=== PATIENT | female | born 1975 | race Caucasian/White ===

== ENCOUNTER 2019-10-06 18:23 | Inpatient (IN) | payer MEDICARE, MEDICAID, OTHER ==
[~2019-10-06 18:23] MED LIST: Lidocaine 1% PF 5 ML VIAL ONE; Metoclopramide HCl 10 MG/2 ML VIAL ONE; Ondansetron PF 4 MG/2 ML Vial ONE; PROPOFOL 200 MG/20 ML VIAL ONE; Succinylcholine Chloride 20 MG/ML 10 ml SYRINGE FS ONE
[2019-10-06] MEDS ORDERED: Iothalamate Meglumine 60% 50 ML VIAL FS ONE (20:03)
[2019-10-06] MEDS ORDERED: Fentanyl 100 MCG/2 ML VIAL ONE (20:09)
[2019-10-06] MEDS ORDERED: Midazolam HCl 2 mg/2 ml Vial ONE (20:09)
--- NOTE | 2019-10-06 21:08 | RAD ---
RETROGRADE PYELOGRAM: 10/06/19 Numerous fluoroscopic images presented from OR during intraoperative procedure for bilateral ureteral stent placement. Retrograde pyelogram procedure. Total of 17 images. FINDINGS/IMPRESSION: These images demonstrate opacification of both collecting structures and placement of bilateral urete ral stents. POS: DAILYW
[2019-10-06] MEDS ORDERED: Ondansetron PF 4 MG/2 ML Vial IVP PRN (22:32)
[2019-10-06] MEDS ORDERED: Ondansetron ODT 4 MG TAB PO PRN (22:32)
[2019-10-06] MEDS ORDERED: Acetaminophen 650 MG Suppository PR PRN (22:32)
--- NOTE | 2019-10-06 22:55 | PDOC.HHP ---
Hospitalist HPI - History of Present Illness Flank pain History of Present Illness: Patient presents with severe flank pain. States she has a known history of a kidney stone and was advised stone removal in the past which was supposed to have been done 2-3 months ago. She states she recently relocated from [place] after her mom . She postponed her procedure due to her mother passing away which required her to come here to "get her affairs in order". The patient has decided to stay and recently had her medical insurance coverage transferred to [place]. She has had intermittent episodes of flank pain with associated with N/V that usually lasts 24 to 48 hours. The pain that brought her in today has persisted longer than 2 days. She opted to seek medical attention and was initially seen at the ED in [facility]. She was given Morphine 4 mg IV for pain and before being transferred she received an additional 5 mg of Morphine, this eased her pain to a 2/10 in severity and now has increased to a 5/10. CT imaging was done showing severe left hydronephrosis secondary to obstructive kidney stone measuring 1 cm. Case was discussed with Dr. Rader who will be taking care for stone removal/stent placement. She was started on IV antibiotics with Rocephin. Given Zofran for nausea. Tested for COVID and was negative. Hospitalist ROS - Review of Systems Constitutional: reports: malaise. denies: fever, chills, sweats, weakness, other Eyes: denies: pain, vision change, conjunctivae inflammation, eyelid inflammation, redness, other ENT: denies: ear pain, ear discharge, nose pain, nose discharge, nose congestion , mouth pain, mouth swelling, throat pain, throat swelling, other Respiratory: denies: cough, dry, shortness of breath, hemoptysis, SOB with excertion, pleuritic pain, sputum, wheezing, other Cardiovascular: denies: chest pain, palpitations, orthopnea, paroxysmal noc. dyspnea, edema, light headedness, other Gastrointestinal: reports: nausea, vomiting, abdominal pain (Left sided pain/ Left flank pain). denies: diarrhea, constipation, melena, hematochezia, other Genitourinary: denies: dysuria, frequency, incontinence, hematuria, retention, other Musculoskeletal: denies: neck pain, shoulder pain, arm pain, back pain, hand pain, leg pain, foot pain, other Skin: denies: rash, lesions, edwina, bruising, other Neurological: denies: weakness, numbness, incoordination, change in speech, confusion, seizures, other - Medication Medications: ALLERGIES: SULFA CURRENT MEDICATIONS: BuSpar WedOct 06, 2019 18:46 LIZ Velasco Elizabeth tablet : Strength - 10 mg : ORAL Patient Dose: UNK mg Oral 2 times a day. gabapentin WedOct 06, 2019 18:47 LIZ Velasco Elizabeth capsule : Strength - 300 mg : ORAL Patient Dose: 300 mg Oral 2 times a day. lisinopril WedOct 06, 2019 18:47 LIZ Velasco Elizabeth tablet : Strength - 2.5 mg : ORAL Patient Dose: 2.5 mg Oral once a day. metFORMIN WedOct 06, 2019 18:48 LIZ Velasco Elizabeth tablet : Strength - 1,000 mg : ORAL Patient Dose: mg Oral 2 times a day.1000MG IN AM, 500MG IN PM. omeprazole WedOct 06, 2019 18:48 LIZ Velasco Elizabeth capsule,delayed release(DR/EC) : Strength - 40 mg : ORAL Patient Dose: 300 mg Oral once a day. SEROquel WedOct 06, 2019 18:48 LIZ Velasco Elizabeth tablet : Strength - 100 mg : ORAL Patient Dose: 100 mg Oral once a day (at bedtime). simvastatin WedOct 06, 2019 18:49 LIZ Velasco Elizabeth tablet : Strength - 40 mg : ORAL Patient Dose: unk mg Oral once a day (at bedtime). Hospitalist History - Past Medical History Cardiac: reports: HTN, Hyperlipidemia Gastrointestinal: reports: GERD Psych: reports: Anxiety, Bipolar, Depression, Psychosis, Other (PTSD) Renal/: reports: Other (nephrolithiasis) Endocrine: reports: Diabetes - Past Surgical History Past Surgical History: reports: Cholecystectomy, (x2), Other ( Lithotripsy) - Family History Family History: reports: no pertinent history - Social History Smoking Status: Smokes 0-10 cigs daily Alcohol: reports: None Drugs: reports: none Activity level: independent ambulation - Exam General Appearance: NAD, awake alert Eye: PERRL, anicteric sclera ENT: normocephalic atraumatic, no oropharyngeal lesions, moist mucosa Neck: supple, symmetric, no lymphadenopathy Heart: RRR, no murmur, no gallops, no rubs, normal peripheral pulses Respiratory: CTAB, no wheezes, no rales, no ronchi, normal chest expansion Gastrointestinal: soft, non-distended, normal bowel sounds, no guarding, tender to palpation (left CVA tenderness/left abdominal discomfort with palpation) Extremities: no edema Skin: normal turgor, no lesions, no rashes Neurological: cranial nerve grossly intact, normal sensation to touch, no focal deficits Musculoskeletal: normal tone, normal strength, no muscle wasting Psychiatric: normal affect, normal behavior, A&O x 3 Hospitalist Results - Labs Lab results: Lactic Acid 1.3 mmol/L (0.5-2.2) 10/06/19 19:54 Hospitalist H&P A/P - Problem (1) Ureterolithiasis Code(s): N20.1 - CALCULUS OF URETER Status: Acute (2) Hydronephrosis of left kidney Code(s): N13.30 - UNSPECIFIED HYDRONEPHROSIS Status: Acute (3) Pyelonephritis Code(s): N12 - TUBULO-INTERSTITIAL NEPHRITIS, NOT SPCF ACUTE OR CHRONIC Status: Acute (4) Flank pain Code(s): R10.9 - UNSPECIFIED ABDOMINAL PAIN Status: Acute (5) Hypertension Code(s): I10 - ESSENTIAL (PRIMARY) HYPERTENSION Status: Chronic (6) Diabetes mellitus Code(s): E11.9 - TYPE 2 DIABETES MELLITUS WITHOUT COMPLICATIONS Status: Chronic (7) GERD (gastroesophageal reflux disease) Code(s): K21.9 - GASTRO-ESOPHAGEAL REFLUX DISEASE WITHOUT ESOPHAGITIS Status: Chronic (8) Anxiety and depression Code(s): F41.9 - ANXIETY DISORDER, UNSPECIFIED; F32.9 - MAJOR DEPRESSIVE DISORDER, SINGLE EPISODE, UNSPECIFIED Status: Chronic - Plan Plan: Continue IV antibiotics IV fluids Urology following Monitor BP, hold antihypertensives as BP on low side at initial arrival. Monitor glucose. ISS initiated. GI prophylaxis: Resume omeprazole which she takes at home. DVT Pophylaxis: Mechanical SCDs. CODE STATUS FULL No MPOA established at present. She currently lives with her Fiance who would be her contact (Jose Fernandez).
[2019-10-06 23:03] VITALS: BMI 37.4
[2019-10-06] MEDS ORDERED: Dextrose 50% Abboject 50 ML SYRINGE SLOW IVP PRN (23:36)
[2019-10-06] MEDS ORDERED: Dextrose 5% in Water 1,000 ML IV PRN (23:36)
[2019-10-06] MEDS ORDERED: HumaLOG 300 UNITS/3 ML VIAL SC PRN ×2 (23:36)
[2019-10-06] MEDS: Ketorolac Tromethamine 30 MG/ML VIAL IVP SCH (23:44)
[2019-10-06] MEDS: Oxybutynin 5 MG TAB PO PRN (23:45)
--- NOTE | 2019-10-07 01:06 | CON ---
DATE OF CONSULTATION: 10/06/2019 REASON FOR CONSULT: Obstructing kidney stone. CHIEF COMPLAINT: Left flank pain. HISTORY OF PRESENT ILLNESS: This is a very nice 44-year-old female with a history of recurrent kidney stones for her entire life beginning at age 21. She tells me she passes about one stone per year. This current episode began in late July at which time she was diagnosed with a large obstructing left ureteral stone back in [place], [place]. She then had to move to [place] to care for her dying mother and was unable to follow through with the surgical plan for treating that stone. She tells me that her pain intensified yesterday with fevers of 100.3 overnight. She presented to the local emergency room in [place], [place] where a CT scan was performed showing a 1 cm stone in the distal left ureter with severe hydronephrosis with perinephric edema. Her white count was 17, and urinalysis positive for nitrite. Her vitals have been stable both in [place] and here. She was transferred to [facility] for surgical intervention. In speaking with her this evening in the emergency room, she tells me that she continues to have intermittent pain on the left side up to 7/10. She is having intermittent nausea, but no vomiting. She denies current dysuria, hematuria, fevers, or chills. PAST MEDICAL HISTORY: Diabetes, reflux, hypertension, kidney stones. SURGICAL HISTORY: Cholecystectomy, shockwave lithotripsy 12 years ago, . SOCIAL HISTORY: Nonsmoker. No substance abuse. CURRENT MEDICATIONS: Include: 1. BuSpar. 2. Gabapentin. 3. Lisinopril. 4. Metformin. 5. Omeprazole. 6. Seroquel. 7. Simvastatin. ALLERGIES: SULFA. PHYSICAL EXAMINATION: VITAL SIGNS: Afebrile, heart rate has been around 100 here in the emergency room, otherwise vitals are stable. GENERAL: The patient appears uncomfortable, conversant. HEENT: Head is normocephalic, atraumatic. Eyes, extraocular movements intact. Sclerae nonicteric. NECK: Supple. Trachea midline. Unlabored breathing. Symmetric chest expansion. HEART: Regular rate and rhythm. ABDOMEN: Soft, nontender, nondistended. Positive left CVA tenderness, positive suprapubic tenderness. SKIN: Warm and dry. EXTREMITIES: No peripheral edema or clubbing. NEUROLOGIC: Alert and oriented x3. PSYCHIATRIC: Normal mood and affect. LABORATORY DATA: Reviewed showing white count 17, creatinine 1.0, carbon dioxide 19. Urinalysis shows positive nitrite and leukocyte esterase. CT report has been reviewed, she did not come with a CD that I can find. The report indicates a distal left stone 1 cm in size and on the right side, a 1.6 cm and 6 mm stones in the inferior pole of the right kidney. ASSESSMENT AND PLAN: Obstructing left ureteral stone, right renal stones, urinary tract infection versus pyelonephritis. The patient and I discussed her current condition and I advised that we proceed to the operating room for cystoscopy with left stent placement for the obstructing stone. At that time, I also advised that we perform right stent placement in preparation for treating the right-sided stones. I described the procedure in detail including the risk of bleeding, infection, pain, and inability to bypass the stone to place the stent requiring nephrostomy tube, and the fact that she will need further treatments to treat the stones. She expressed understanding and wished to proceed. TIME SPENT: 70 minutes spent in direct patient care. Job ID: [id number]
--- NOTE | 2019-10-07 01:10 | OP ---
DATE OF PROCEDURE: 10/06/2019 PREOPERATIVE DIAGNOSES: 1. Obstructing left ureteral stone. 2. Right renal stones. POSTOPERATIVE DIAGNOSES: 1. Obstructing left ureteral stone. 2. Right renal stones. PROCEDURES PERFORMED: Cystoscopy with bilateral retrograde pyelogram, left 6 x 26 double-J ureteral stent placement, right 6 x 24 double-J ureteral stent placement, both without strings. ANESTHESIA: General. COMPLICATIONS: None. BLOOD LOSS: None. SPECIMENS: Urine culture. DESCRIPTION OF PROCEDURE: After informed consent, the patient was taken to the operating room, transferred to the table on her own power. Anesthesia was established. A time-out was performed showing the correct patient, site, and the procedure. Preoperative antibiotics were administered. She was prepped and draped in the lithotomy position. I began by inserting the 23-Macedonian rigid cystoscope through the urethra. The bladder was systematically examined, noting no mucosal abnormalities. The left ureter was identified and cannulated with a Pollack. I was able to see the stone under fluoroscopy in the distal ureter. A gentle retrograde pyelogram was performed, showing a severe hydroureter and hydronephrosis. A wire was passed through the Pollack around the stone and into the renal pelvis. A 6 x 26 double-J ureteral stent was positioned over the wire with a curl in the kidney and curl in the bladder under fluoroscopic guidance. A small amount of purulent drainage resulted after placing the stent and a urine culture was sent at this point. The Pollack catheter was then passed into the right ureteral orifice and a retrograde pyelogram performed showing good filling of the renal pelvis and ureter. The stone was seen in a lower pole calyx. A wire was then passed through the Pollack into the renal pelvis, and a 6 x 24 double-J ureteral stent positioned over the wire with a curl in the kidney and curl in the bladder. Completion cystoscopy showed both ureteral stents positioned with a curl in the bladder. Completion images were taken. The bladder was then drained. The patient was awoken from anesthesia and transferred back to her hospital bed, and taken to the PACU in stable condition, where she will be admitted to the hospitalist service. Job ID: [id number]
[2019-10-07 06:04] LABS: #Basophils 0.1 thou/uL (0.0-0.2); #Eosinphils 0.1 thou/uL (0.0-0.7); #Lymphocytes 1.9 thou/uL (1.20-3.40); #Monocytes 1.6 thou/uL (0.11-0.59); #Neutrophils 9.8 thou/uL (1.40-6.50); %Basophils 0.4 % (0.0-1.0); %Lymphocytes 14.4 % (21.0-51.0); %Monocytes 11.7 % (0.0-10.0); %Neutrophils 72.4 % (42.0-75.0); Hemoglobin 9.4 g/dL (12.0-16.0); Mean Corpuscular HGB CONC 29.3 g/dL (32.0-36.0); Mean Corpuscular Hemoglobin 23.1 pg (27.0-31.0); Mean Corpuscular Volume 78.8 fL (78.0-98.0); Mean Platelet Volume 9.7 fL (7.4-10.4); Platelet Count 291 thou/uL (130-400); RBC Distribution Width 19.3 % (11.5-14.5); Red Blood Cell (RBC) Count 4.04 mill/uL (4.20-5.40); White Blood Cell (WBC) Count 13.5 thou/uL (4.8-10.8)
[2019-10-07] MEDS: Ketorolac Tromethamine 30 MG/ML VIAL IVP SCH ×4 (06:17→23:22)
[2019-10-07 06:21] LABS: Anion Gap 11 mmol/L (10-20); BUN (Urea Nitrogen) 9 mg/dL (7.0-18.7); Calc. Creatinine Clearance 112 mL/min (70-130); Calcium 7.7 mg/dL (7.8-10.44); Carbon Dioxide 18 mmol/L (22-29); Chloride 111 mmol/L (98-107); Estimated GFR-MDRD 63; Glucose 121 mg/dL (70-105); Potassium 3.9 mmol/L (3.5-5.1); Sodium 136 mmol/L (136-145)
[2019-10-07] MEDS: Oxybutynin 5 MG TAB PO PRN ×2 (09:12→17:11)
[2019-10-07] MEDS: Famotidine/PF 20 mg/2ml Vial SLOW IVP SCH ×2 (09:12→20:27)
--- NOTE | 2019-10-07 11:00 | PRG ---
DATE OF SERVICE: 10/07/2019 SUBJECTIVE: The patient reports that she feels much better than yesterday noting no further flank pain or fevers. She does endorse fatigue and feeling weak overall. She denies chest pains, difficulty breathing, or headaches. OBJECTIVE: VITAL SIGNS: Afebrile. Vitals are stable. GENERAL: No acute distress. Conversant. LUNGS: Unlabored breathing. Symmetric chest expansion. HEART: Regular rate and rhythm. ABDOMEN: Soft, nontender, and nondistended. No CVA or suprapubic tenderness. EXTREMITIES: No peripheral edema. SKIN: Warm and dry. NEUROLOGIC: Alert and oriented x3. PSYCHIATRIC: Normal mood and affect. LABORATORY DATA: White count down to 13 today, hemoglobin 9.4. Creatinine 0.95. ASSESSMENT AND PLAN: Postoperative day 1, cystoscopy with bilateral stent placement for obstructing left ureteral stone and large right renal stones, pyelonephritis. She is progressing well after stent placement. Urine culture was sent at the time of stent placement yesterday, which should result by tomorrow. She will need oral antibiotics for about 2 weeks, at which point, she and I will discuss her surgical intervention for the stones. Job ID: [id number]
[2019-10-07] MEDS: cefTRIAXone\\ROCEPHIN 2 GM in Sodium Chloride 0.9% 100 ML IVPB SCH (16:20)
--- NOTE | 2019-10-07 16:38 | PDOC.HOSPP ---
- Subjective Encounter Date: 10/07/19 Encounter Time: 09:00 Subjective: Pt seen for ureterolithiasis. Feels better today. - Objective Vital Signs & Weight: Vital Signs (12 hours) Temp Pulse Resp BP Pulse Ox 10/07/19 14:37 98.4 F 74 16 121/75 97 10/07/19 10:26 98.3 F 76 16 113/66 97 10/07/19 07:50 98.2 F 78 16 113/56 L 93 L Weight Weight 211 lb 6.4 oz I&O: 10/06/19 10/07/19 10/08/19 06:59 06:59 06:59 Intake Total 420 Output Total 400 Balance 20 Result Diagrams: 10/07/19 05:40 10/07/19 05:40 Additional Labs: Accuchecks 10/07/19 10/07/19 10/07/19 14:40 10:33 06:26 POC Glucose 145 H 147 H 134 H 10/06/19 22:30 POC Glucose 131 H Labs and MARs reviewed by nc Hospitalist ROS - Review of Systems Cardiovascular: denies: chest pain, palpitations, orthopnea, paroxysmal noc. dyspnea, edema, light headedness Gastrointestinal: denies: nausea, vomiting, abdominal pain, diarrhea, constipation, melena, hematochezia - Medication Medications: Active Medications Generic Name Dose Route Start Last Admin Trade Name Freq PRN Reason Stop Dose Admin Famotidine 20 mg 10/07/19 09:00 10/07/19 09:12 Pepcid SLOW IVP 20 mg Q12HR DENNY Administration Ceftriaxone Sodium 2 gm/ 100 mls @ 200 mls/hr 10/07/19 14:30 10/07/19 16:20 Sodium Chloride IVPB 100 mls Q24HR DENNY Administration Ketorolac Tromethamine 30 mg 10/06/19 23:59 10/07/19 13:01 Toradol IVP 10/11/19 23:59 30 mg Q6HR DENNY Administration Oxybutynin Chloride 5 mg 10/06/19 22:18 10/07/19 09:12 Ditropan PO 5 mg Q8H PRN Administration Bladder Spasms - Exam General - other findings: Obese Eye: anicteric sclera ENT: no oropharyngeal lesions Neck: supple Heart: RRR Respiratory: CTAB Gastrointestinal: soft, non-tender, normal bowel sounds Extremities: no cyanosis Skin: no rashes Musculoskeletal: no muscle wasting Psychiatric: normal affect, normal behavior Hosp A/P - Plan - Assessment (1) Ureterolithiasis Code(s): N20.1 - CALCULUS OF URETER Status: Acute (2) Pyelonephritis Code(s): N12 - TUBULO-INTERSTITIAL NEPHRITIS, NOT SPCF ACUTE OR CHRONIC Status: Acute (3) Hydronephrosis of left kidney Code(s): N13.30 - UNSPECIFIED HYDRONEPHROSIS Status: Acute (4) GERD (gastroesophageal reflux disease) Code(s): K21.9 - GASTRO-ESOPHAGEAL REFLUX DISEASE WITHOUT ESOPHAGITIS Status: Chronic (5) Hypertension Code(s): I10 - ESSENTIAL (PRIMARY) HYPERTENSION Status: Chronic (6) Diabetes mellitus Code(s): E11.9 - TYPE 2 DIABETES MELLITUS WITHOUT COMPLICATIONS Status: Chronic (7) Anxiety and depression Code(s): F41.9 - ANXIETY DISORDER, UNSPECIFIED; F32.9 - MAJOR DEPRESSIVE DISORDER, SINGLE EPISODE, UNSPECIFIED Status: Chronic - Plan Plan: Continue IV ceftriaxone, await urine culture. s/p cystoscopy and ureteric stent placement. Continue accuchecks and insulin sliding scale. Blood sugars reasonably controlled. Depression mild, stable. HTN controlled.
[2019-10-07] MEDS ORDERED: Amlodipine 5 MG TAB PO SCH (17:00)
[2019-10-07] MEDS ORDERED: Metoprolol Tartrate 25 MG TAB PO SCH (17:00)
[2019-10-07] MEDS ORDERED: Loratadine 10 MG TAB PO SCH (17:00)
[2019-10-07] MEDS: Acetaminophen 325 MG TAB PO PRN (20:36)
[2019-10-08] MEDS: Oxybutynin 5 MG TAB PO PRN ×3 (02:51→23:52)
[2019-10-08] MEDS: Acetaminophen 325 MG TAB PO PRN ×2 (02:51→19:52)
[2019-10-08] MEDS: Ketorolac Tromethamine 30 MG/ML VIAL IVP SCH ×4 (06:01→23:52)
[2019-10-08] MEDS ORDERED: DIOVAN PO SCH (09:00)
[2019-10-08] MEDS: Famotidine/PF 20 mg/2ml Vial SLOW IVP SCH ×2 (11:35→19:53)
--- NOTE | 2019-10-08 12:26 | PRG ---
DATE OF SERVICE: 10/08/2019 SUBJECTIVE: No acute events overnight. No discomfort other than mild bladder irritation from the stents. She denies dysuria, flank pain, nausea, vomiting, fevers, or chills. Tolerating oral diet. OBJECTIVE: VITAL SIGNS: Afebrile. Vitals stable. GENERAL: No acute distress. Conversant. NECK: Supple. Trachea midline. Unlabored breathing. Symmetric chest expansion. HEART: Regular rate and rhythm. ABDOMEN: Soft, nontender, and nondistended. No flank or suprapubic tenderness. SKIN: Warm and dry. No peripheral edema or clubbing. NEUROLOGIC: Alert and oriented x3. PSYCHIATRIC: Normal mood and affect. LABORATORY DATA: Urine output 2500. Laboratory reviewed. Blood sugars around 135. ASSESSMENT AND PLAN: Postoperative day 2, cystoscopy with bilateral stent placement. Clinically, the patient is stable for discharge; however, we are awaiting urine culture. The preliminary results show rare growth, requiring subculture. Once this has returned, she can discharge home with 2 weeks of appropriate antibiotics. I will see her on October 17 to begin planning for staged ureteroscopy. Job ID: [id number]
--- NOTE | 2019-10-08 15:28 | PDOC.HOSPP ---
- Subjective Encounter Date: 10/08/19 Encounter Time: 09:00 Subjective: She was seen for follow-up for ureterolithiasis. Denies any flank pain. Denies any fevers. Denies any chest pain, shortness of breath, nausea or vomiting. - Objective Vital Signs & Weight: Vital Signs (12 hours) Temp Pulse Resp BP Pulse Ox 10/08/19 10:22 98.1 F 70 16 143/84 H 98 10/08/19 07:34 98.1 F 60 16 143/79 H 99 10/08/19 07:17 98.1 F 66 16 143/74 H 100 10/08/19 04:08 98 F 66 16 120/74 99 Weight Weight 211 lb 6.4 oz I&O: 10/07/19 10/08/19 10/09/19 06:59 06:59 06:59 Intake Total 420 2700 Output Total 400 2500 Balance 20 200 Result Diagrams: 10/07/19 05:40 10/07/19 05:40 Additional Labs: Accuchecks 10/08/19 10/08/19 10/07/19 10:28 07:04 20:47 POC Glucose 135 H 98 105 Labs and MAR were reviewed by me. Hospitalist ROS - Review of Systems Gastrointestinal: denies: nausea, vomiting, abdominal pain, diarrhea, constipation, melena, hematochezia Genitourinary: denies: dysuria, frequency, incontinence, hematuria, retention - Medication Medications: Active Medications Generic Name Dose Route Start Last Admin Trade Name Freq PRN Reason Stop Dose Admin Acetaminophen 650 mg 10/06/19 22:32 10/08/19 02:51 Tylenol PO 650 mg Q4H PRN Administration Headache/Fever/Mild Pain (1-3) Famotidine 20 mg 10/07/19 09:00 10/08/19 11:35 Pepcid SLOW IVP 20 mg Q12HR DENNY Administration Ceftriaxone Sodium 2 gm/ 100 mls @ 200 mls/hr 10/07/19 14:30 10/07/19 16:20 Sodium Chloride IVPB 100 mls Q24HR DENNY Administration Ketorolac Tromethamine 30 mg 10/06/19 23:59 10/08/19 11:32 Toradol IVP 10/11/19 23:59 30 mg Q6HR DENNY Administration Oxybutynin Chloride 5 mg 10/06/19 22:18 10/08/19 11:32 Ditropan PO 5 mg Q8H PRN Administration Bladder Spasms - Exam General Appearance: awake alert Eye: anicteric sclera ENT: moist mucosa Neck: supple Heart: RRR Respiratory: CTAB, no rales Gastrointestinal: soft, non-tender Extremities: no cyanosis Skin: no lesions Psychiatric: normal affect, normal behavior Hosp A/P - Plan - Assessment (1) Ureterolithiasis Code(s): N20.1 - CALCULUS OF URETER Status: Acute (2) Pyelonephritis Code(s): N12 - TUBULO-INTERSTITIAL NEPHRITIS, NOT SPCF ACUTE OR CHRONIC Status: Acute (3) Hydronephrosis of left kidney Code(s): N13.30 - UNSPECIFIED HYDRONEPHROSIS Status: Acute (4) GERD (gastroesophageal reflux disease) Code(s): K21.9 - GASTRO-ESOPHAGEAL REFLUX DISEASE WITHOUT ESOPHAGITIS Status: Chronic (5) Hypertension Code(s): I10 - ESSENTIAL (PRIMARY) HYPERTENSION Status: Chronic (6) Diabetes mellitus Code(s): E11.9 - TYPE 2 DIABETES MELLITUS WITHOUT COMPLICATIONS Status: Chronic (7) Anxiety and depression Code(s): F41.9 - ANXIETY DISORDER, UNSPECIFIED; F32.9 - MAJOR DEPRESSIVE DISORDER, SINGLE EPISODE, UNSPECIFIED Status: Chronic - Plan Plan: Continue IV ceftriaxone, await urine subculture. s/p cystoscopy and ureteric stent placement, to follow up with urology as outpt. Blood sugars reasonably controlled. Depression mild, stable. HTN controlled.
[2019-10-08] MEDS: cefTRIAXone\\ROCEPHIN 2 GM in Sodium Chloride 0.9% 100 ML IVPB SCH (15:42)
[2019-10-09] MEDS: Ketorolac Tromethamine 30 MG/ML VIAL IVP SCH ×3 (06:20→16:13)
[2019-10-09] MEDS: Famotidine/PF 20 mg/2ml Vial SLOW IVP SCH (07:47)
[2019-10-09] MEDS: Acetaminophen 325 MG TAB PO PRN (08:08)
[2019-10-09 11:51] VITALS: BP 162/63; TEMP 98.2
--- NOTE | 2019-10-09 11:54 | DIS ---
DATE OF ADMISSION: 10/06/2019 DATE OF DISCHARGE: 10/09/2019 PRIMARY CARE PROVIDER: None. DISCHARGE DIAGNOSES: 1. Obstructing left ureteral stone. 2. Right nephrolithiasis. 3. Left hydronephrosis. 4. Pyelonephritis. CONDITION: Condition of the patient on the day of discharge: Stable. I assessed Ms. Patel on the day of discharge. She denies any chest pain or shortness of breath. Vital signs are stable. S1 and S2 are heard, regular. Lungs are clear to auscultation bilaterally. CONSULTATIONS DURING THIS HOSPITALIZATION: Urology, Dr. Rader. DISCHARGE MEDICATIONS: Prescriptions for oxybutynin, cefdinir, and ibuprofen were sent to her pharmacy by Urology Service. Her pre-admission home medications are being continued and include; 1. BuSpar 10 mg 2 times a day. 2. Gabapentin 300 mg 2 times a day. 3. Lisinopril 2.5 mg daily. 4. Metformin as directed. 5. Omeprazole 40 mg daily. 6. Simvastatin 40 mg at bedtime. HOSPITAL COURSE: Ms. Patel is a pleasant 44-year-old lady, who was admitted to [facility] on October 06, 2019, for pyelonephritis, right nephrolithiasis, left ureterolithiasis, and left hydronephrosis. She was seen by Urology Service. She underwent cystoscopy with bilateral retrograde pyelogram, left 6 x 26 double-J ureteral stent placement, right 6 x 24 double-J ureteral stent placement, both without strings. She continued to improve clinically. She was initially treated with intravenous antibiotics. Urine culture grew Escherichia coli that was resistant to fluoroquinolones, but was otherwise pansensitive. She is being discharged home in a stable condition. POST-ACUTE CARE FOLLOWUP: With Dr. Rader on October 18, 2019. The patient is also advised to follow up with a primary care provider in 3 days. DIET: Diabetic and heart healthy. ACTIVITY: No restrictions. DISCHARGE DESTINATION: Home. TIME SPENT: Total amount of time spent in coordinating this discharge: 32 minutes. Job ID: [id number]
[2019-10-09] MEDS: cefTRIAXone\\ROCEPHIN 2 GM in Sodium Chloride 0.9% 100 ML IVPB SCH (15:15)
== END 2019-10-09 17:26 | disposition home or self-care (01) | DRG 660 ==
LOC: ERS 18:23 → SURG B 20:25 → SDC/OP 20:25 → SURG B 22:17
PROVIDERS: ADMIT Internal Medicine; ATTEND Internal Medicine
PROC: 0T788DZ Dilation of Bilateral Ureters with Intraluminal Device, Via Natural or Artificial Opening Endoscopic (ICD-10-PCS; principal; 2019-10-06)
PROC: BT14ZZZ Fluoroscopy of Kidneys, Ureters and Bladder (ICD-10-PCS; 2019-10-06)
DX: N13.6 Pyonephrosis (principal); Z16.23 Resistance to quinolones and fluoroquinolones; F32.0 Major depressive disorder, single episode, mild; K21.9 Gastro-esophageal reflux disease without esophagitis; Z11.59 Encounter for screening for other viral diseases; E11.9 Type 2 diabetes mellitus without complications; E78.5 Hyperlipidemia, unspecified; I10 Essential (primary) hypertension; F41.9 Anxiety disorder, unspecified; F43.10 Post-traumatic stress disorder, unspecified; F29 Unspecified psychosis not due to a substance or known physiological condition; B96.20 Unspecified Escherichia coli [E. coli] as the cause of diseases classified elsewhere; F17.210 Nicotine dependence, cigarettes, uncomplicated; Z90.49 Acquired absence of other specified parts of digestive tract; Z88.2 Allergy status to sulfonamides; Z79.899 Other long term (current) drug therapy; Z79.84 Long term (current) use of oral hypoglycemic drugs
CPT/HCPCS: 36415; 36416; 74420; 80048; 83605; 85025; 87077; 87086; 87186; J0696; J1885; J2250; J2405; J2704; J2765; J3010; J3490; S0028

== ENCOUNTER 2019-11-21 05:52 | Day surgery (SDC) | payer MEDICARE, MEDICAID ==
[2019-11-16 09:14] VITALS: BMI 32.3
[2019-11-21] MEDS ORDERED: Sodium Chloride 0.9% 100 ML ONE (06:28)
[2019-11-21] MEDS ORDERED: cefTRIAXone\\ROCEPHIN 1 GM VIAL ONE (06:28)
[2019-11-21] MEDS ORDERED: Fentanyl 100 MCG/2 ML VIAL ONE (06:38)
[2019-11-21] MEDS ORDERED: Iothalamate Meglumine 60% 50 ML VIAL FS ONE (07:07)
[2019-11-21] MEDS ORDERED: Midazolam HCl 2 mg/2 ml Vial ONE (07:08)
--- NOTE | 2019-11-21 08:45 | RAD ---
EXAM: Retrograde IVP HISTORY: Bilateral ureteral stent placement COMPARISON: 10/06/2019 FINDINGS/IMPRESSION: Limited intraoperative fluoroscopic views of the retrograde IVP were submitted f or interpretation. There are bilateral ureteral stents which appear in good position. There is mild bilateral hydronephrosis.
[2019-11-21] MEDS ORDERED: Oxybutynin 5 MG TAB ONE (09:35)
[2019-11-21] MEDS ORDERED: EPHEDRINE 25 MG/5 ML SYRINGE ONE (09:59)
[2019-11-21] MEDS ORDERED: PHENYLEPHRINE-NS 100 MCG/ML 10 ML SYRINGE ONE (09:59)
[2019-11-21] MEDS ORDERED: Lidocaine 1% PF 5 ML VIAL ONE (09:59)
[2019-11-21] MEDS ORDERED: Ketorolac Tromethamine 30 MG/ML VIAL ONE (09:59)
[2019-11-21] MEDS ORDERED: Ondansetron PF 4 MG/2 ML Vial ONE (09:59)
[2019-11-21] MEDS ORDERED: PROPOFOL 200 MG/20 ML VIAL ONE (09:59)
--- NOTE | 2019-11-21 10:28 | OP ---
DATE OF PROCEDURE: 11/21/2019 PREOPERATIVE DIAGNOSES: Left ureteral stone, right renal stones. POSTOPERATIVE DIAGNOSES: Left ureteral stone, right renal stones. PROCEDURES PERFORMED: Left ureteroscopy with laser, basket extraction, retrograde pyelogram, 6 x 24 double-J ureteral stent placement, right ureteroscopy with laser, retrograde pyelogram, 6 x 26 double-J stent placement. ANESTHESIA: General. COMPLICATIONS: None. ESTIMATED BLOOD LOSS: None. SPECIMEN: Left ureteral stone fragments. DESCRIPTION OF PROCEDURE: After informed consent, the patient was taken to the operating room, transferred to the table under her own power. Anesthesia was established. A time-out was performed showing the correct patient, site, and procedure. Preoperative antibiotics were administered. She was prepped and draped in the lithotomy position. The rigid cystoscope was advanced through the urethra into the bladder. The left ureteral stent was grasped and brought out through the urethral meatus. I was unable to pass a wire through this due to fairly heavy calcifications and so the stent was removed and the semi-rigid ureteroscope inserted and used to pass a wire into the left ureter, which was passed up to the renal pelvis under fluoroscopic guidance. The scope was then inserted alongside the wire until the stone was identified in the mid ureter. The stone was treated with the 273 micron laser fiber. All stone fragments were removed with the 1.9 cm Nitinol basket. The scope was then passed up to the left UPJ, noting no further stone fragments. A completion retrograde pyelogram was performed showing good filling of the kidney with no extravasation or filling defects. The scope was then withdrawn leaving the wire in place and a 6 x 24 double-J ureteral stent without strings was placed over the wire with curl in the kidney and curl in the bladder under fluoroscopic guidance. The cystoscope was then replaced into the bladder and the right ureteral stent removed. The scope was then reinserted and wire passed into the right ureter up to the level of the renal pelvis under fluoroscopic guidance. An access sheath was placed over the wire into the mid to proximal ureter and a retrograde pyelogram performed through this showing a filling defect at the UPJ. Otherwise, good filling of the kidney. The large stone was clearly seen in the lower pole on industrial cleaning technician imaging. The flexible ureteroscope was passed through the access sheath into the proximal ureter and finally to the UPJ, where there was a stone identified. This was treated with the laser. This scope was then passed into the renal pelvis and the large stone identified in the lower pole. I spent about 40 minutes later time treating this stone. However, the stone was very hard and was unable to completely fragment the stone. At this point, visualization was very poor due to the significant stone debris and so a retrograde pyelogram was performed filling the renal pelvis with contrast. The scope was slowly withdrawn leaving a wire in place. The access sheath was then carefully withdrawn and a 6 x 26 double-J ureteral stent without strings was passed over the wire with a curl in the kidney and curl in the bladder. Her bladder was then drained. The patient was awoken from anesthesia, transferred back to her hospital bed, and taken to PACU in stable condition, where she will discharge home upon recovery. We will plan for completion/second-stage ureteroscopy in the near future. Job ID: [id number]
== END 2019-11-21 10:40 | disposition home or self-care (01) ==
LOC: SDC 05:52
PROVIDERS: ATTEND Urology
PROC: 0T788DZ Dilation of Bilateral Ureters with Intraluminal Device, Via Natural or Artificial Opening Endoscopic (ICD-10-PCS; principal; 2019-11-21)
DX: N20.2 Calculus of kidney with calculus of ureter (principal); N30.01 Acute cystitis with hematuria; Z79.84 Long term (current) use of oral hypoglycemic drugs; Z79.899 Other long term (current) drug therapy; Z88.2 Allergy status to sulfonamides
CPT/HCPCS: 74420; 82365; 88300; J0696; J1885; J2250; J2405; J2704; J3010; J3490

== ENCOUNTER 2019-12-07 07:40 | Outpatient (CLI) | payer MEDICARE, MEDICAID, OTHER ==
[2019-11-16 16:17] LABS: Hemoglobin 11.2 g/dL (12.0-16.0); Mean Corpuscular HGB CONC 31.7 g/dL (32.0-36.0); Mean Corpuscular Hemoglobin 24.2 pg (27.0-31.0); Mean Corpuscular Volume 76.2 fL (78.0-98.0); Mean Platelet Volume 9.8 fL (7.4-10.4); Platelet Count 343 thou/uL (130-400); RBC Distribution Width 17.9 % (11.5-14.5); Red Blood Cell (RBC) Count 4.62 mill/uL (4.20-5.40)
[2019-11-16 16:25] LABS: PTT 27.9 sec (22.9-36.1); Prothrombin Time 13.6 sec (12.0-14.7)
[2019-11-16 16:36] LABS: Anion Gap 13 mmol/L (10-20); BUN (Urea Nitrogen) 10 mg/dL (7.0-18.7); Calc. Creatinine Clearance 0 mL/min (70-130); Calcium 8.8 mg/dL (7.8-10.44); Carbon Dioxide 20 mmol/L (22-29); Chloride 107 mmol/L (98-107); Estimated GFR-MDRD 63; Glucose 115 mg/dL (70-105); Potassium 3.9 mmol/L (3.5-5.1); Sodium 136 mmol/L (136-145)
[2019-11-17 13:49] LABS: SARS-CoV-2 MS2 Positive; SARS-CoV-2 N Gene Negative; SARS-CoV-2 S Gene Negative; SARS-CoV-2 by NAA Not Detected (NotDetected); SARS-CoV-2 orf1ab Negative
--- NOTE | 2019-11-22 20:11 | EKG ---
Test Reason : PREOP Blood Pressure : / mmHG Vent. Rate : 070 BPM Atrial Rate : 070 BPM P-R Int : 138 ms QRS Dur : 072 ms QT Int : 422 ms P-R-T Axes : 002 041 024 degrees QTc Int : 455 ms Normal sinus rhythm Normal ECG Confirmed by DR. Israel TURNER MD ([id number]) on 11/22/2019 8:11:19 PM Referred By: CHANDRA Confirmed By:DR. Israel TURNER MD
== END 2019-12-07 07:41 | disposition home or self-care (01) ==
LOC: LABBT 07:40
PROVIDERS: ATTEND Urology
DX: Z01.818 Encounter for other preprocedural examination (principal); Z20.828 Contact with and (suspected) exposure to other viral communicable diseases; N20.0 Calculus of kidney
CPT/HCPCS: 80048; 85027; 85610; 85730; 93005; U0003; 87635; 93010

== ENCOUNTER 2019-12-26 07:33 | Outpatient (CLI) | payer MEDICARE, MEDICAID, OTHER ==
[2019-12-26 14:14] LABS: Hemoglobin 10.2 g/dL (12.0-16.0); Mean Corpuscular HGB CONC 30.5 g/dL (32.0-36.0); Mean Corpuscular Hemoglobin 24.4 pg (27.0-31.0); Mean Corpuscular Volume 80.1 fL (78.0-98.0); Mean Platelet Volume 9.6 fL (7.4-10.4); Platelet Count 252 thou/uL (130-400); RBC Distribution Width 18.8 % (11.5-14.5); White Blood Cell (WBC) Count 9.8 thou/uL (4.8-10.8)
[2019-12-26 14:21] LABS: BHCG - Serum Negative (NEGATIVE); Pregs Control Background? CLEAR/WHITE (CLR/WHITE); Pregs Control Bar Appear? YES (CONTROL BAR)
[2019-12-26 14:27] LABS: PTT 26.4 sec (22.9-36.1); Prothrombin Time 13.4 sec (12.0-14.7)
[2019-12-26 14:34] LABS: Bacteria/HPF 4+ HPF (None Seen); Bilirubin Negative (Negative); Blood, Urine 1+ (Negative); Clarity Turbid (Clear); Glucose, Urine (Dipstick) Normal (Negative); Ketone, Urine Negative (Negative); Leukocyte 500 Leu/uL (Negative); Nitrite Negative (Negative); Protein, Urine (Dipstick) 20 mg/dL (Neg-Trace); Specific Gravity, Urine 1.012 (1.002-1.036); Squamous Epithelial 0-3 HPF (0-3); Urobilinogen Normal mg/dL (Less than 2); WBC/HPF Greater than 50 HPF (0-3)
[2019-12-26 15:13] LABS: Anion Gap 11 mmol/L (10-20); BUN (Urea Nitrogen) 10 mg/dL (7.0-18.7); Calc. Creatinine Clearance 0 mL/min (70-130); Calcium 8.2 mg/dL (7.8-10.44); Carbon Dioxide 23 mmol/L (22-29); Chloride 108 mmol/L (98-107); Estimated GFR-MDRD 59; Glucose 140 mg/dL (70-105); Potassium 3.3 mmol/L (3.5-5.1); Sodium 139 mmol/L (136-145)
[2019-12-27 15:43] LABS: SARS-CoV-2 MS2 Positive; SARS-CoV-2 N Gene Positive; SARS-CoV-2 S Gene Positive; SARS-CoV-2 by NAA DETECTED (NotDetected); SARS-CoV-2 orf1ab Negative
--- NOTE | 2019-12-27 17:29 | EKG ---
Test Reason : PREOP Blood Pressure : / mmHG Vent. Rate : 073 BPM Atrial Rate : 073 BPM P-R Int : 142 ms QRS Dur : 074 ms QT Int : 440 ms P-R-T Axes : 021 068 038 degrees QTc Int : 484 ms Normal sinus rhythm Prolonged QT Abnormal ECG When compared with ECG of 16-NOV-2019 13:10, No significant change was found Confirmed by DR. Mario CARRASCO ([id number]) on 12/27/2019 5:28:41 PM Referred By: Eirk ARTIS Confirmed By:DR. Mario CARRASCO
== END 2019-12-26 07:34 | disposition home or self-care (01) ==
LOC: LABBT 07:33
PROVIDERS: ATTEND Urology
DX: U07.1 COVID-19 (principal); Z01.818 Encounter for other preprocedural examination; N20.0 Calculus of kidney; N30.01 Acute cystitis with hematuria
CPT/HCPCS: 80048; 81001; 84703; 85027; 85610; 85730; 87086; 93005; U0003; 87635; 93010

== ENCOUNTER 2020-01-12 06:59 | Outpatient (CLI) | payer MEDICARE, MEDICAID, OTHER ==
[2020-01-12 15:30] LABS: Hemoglobin 9.1 g/dL (12.0-16.0); Mean Corpuscular HGB CONC 30.1 G/DL (32.0-36.0); Mean Corpuscular Hemoglobin 23.4 PG (27.0-33.0); Mean Corpuscular Volume 77.6 fl (80.0-100.0); Mean Platelet Volume 11.3 fl (7.4-10.4); Platelet Count 318 10x3/uL (130-400); RBC Distribution Width 19.8 % (11.5-14.5); Red Blood Cell (RBC) Count 3.89 10x6/uL (3.90-5.20); White Blood Cell (WBC) Count 9.3 10x3/uL (4.5-11.0)
[2020-01-12 15:32] LABS: Bilirubin Neg (Negative); Blood, Urine 25 (Negative); Glucose, Urine (Dipstick) Normal (Negative); Ketone, Urine Negative (Negative); Leukocyte 500 (Negative); Nitrite Negative (Negative); Protein, Urine (Dipstick) 30 mg/dl (Neg-Trace); Urobilinogen Normal mg/dL (Less than 2)
[2020-01-12 15:44] LABS: BHCG - Serum Negative (NEGATIVE); Pregs Control Bar Appear? YES (CONTROL BAR)
[2020-01-12 15:45] LABS: Pregs Control Background? CLEAR/WHITE (CLR/WHITE)
[2020-01-12 15:48] LABS: Anion Gap 18 mmol/L (10-20); BUN (Urea Nitrogen) 11 mg/dL (7.0-18.7); Calc. Creatinine Clearance 0 mL/min (70-130); Calcium 8.8 mg/dL (7.8-10.44); Carbon Dioxide 15 mmol/L (22-29); Chloride 110 mmol/L (98-107); Estimated GFR-MDRD 64; Glucose 114 mg/dL (70-105); Potassium 4.3 mmol/L (3.5-5.1); Sodium 139 mmol/L (136-145)
[2020-01-12 15:50] LABS: WBC/HPF 21-50 HPF (0-3)
[2020-01-12 15:52] LABS: Transitional Epithelial 0-3 HPF (None Seen)
[2020-01-12 15:56] LABS: Bacteria/HPF 1+ HPF (None Seen); Trichomonas/HPF Rare HPF (None Seen)
[2020-01-15 00:13] LABS: SARS-CoV-2 MS2 Positive; SARS-CoV-2 N Gene Negative; SARS-CoV-2 S Gene Negative; SARS-CoV-2 by NAA Not Detected (Not Detected); SARS-CoV-2 orf1ab Negative
--- NOTE | 2020-01-17 19:25 | EKG ---
Test Reason : Blood Pressure : / mmHG Vent. Rate : 078 BPM Atrial Rate : 078 BPM P-R Int : 146 ms QRS Dur : 070 ms QT Int : 398 ms P-R-T Axes : 026 082 046 degrees QTc Int : 453 ms Sinus rhythm with Premature supraventricular complexes Otherwise normal ECG When compared with ECG of 26-DEC-2019 10:55, Premature supraventricular complexes are now Present Confirmed by YUE SHELTON, SBret ([id number]) on 01/17/2020 7:24:35 PM Referred By: CHANDRA Confirmed By:DR. Israel TURNER MD
== END 2020-01-12 07:00 | disposition home or self-care (01) ==
LOC: LABBT 06:59
PROVIDERS: ATTEND Urology
DX: Z01.818 Encounter for other preprocedural examination (principal); N20.0 Calculus of kidney; N30.01 Acute cystitis with hematuria; Z98.890 Other specified postprocedural states
CPT/HCPCS: 80048; 81001; 84703; 85027; 87086; U0003; 87635; 93005; 93010

== ENCOUNTER 2020-01-16 07:44 | Day surgery (SDC) | payer MEDICARE, MEDICAID ==
[2020-01-15 14:38] VITALS: BMI 32.3
[2020-01-16] MEDS ORDERED: Levofloxacin 500 mg/D5W 100 ml Premix Bag ONE (08:27)
[2020-01-16] MEDS ORDERED: Iothalamate Meglumine 60% 50 ML VIAL FS ONE (09:39)
[2020-01-16] MEDS ORDERED: Fentanyl 100 MCG/2 ML VIAL ONE (09:43)
[2020-01-16] MEDS ORDERED: SUGAMMADEX SODIUM 200 MG/2 ML VIAL ONE (09:43)
[2020-01-16] MEDS ORDERED: Oxybutynin 5 MG TAB ONE (11:15)
[2020-01-16] MEDS ORDERED: Promethazine HCl 25 MG/ML VIAL ONE (12:00)
--- NOTE | 2020-01-16 12:41 | OP ---
DATE OF PROCEDURE: 01/16/2020 PREOPERATIVE DIAGNOSES: Right renal stones, history of left ureteral stones. POSTOPERATIVE DIAGNOSES: Right renal stones, history of left ureteral stones. PROCEDURES PERFORMED: Right ureteroscopy with laser lithotripsy, basket extraction of stone, retrograde pyelogram, intraoperative interpretation of radiologic imaging, 6 x 26 double-J ureteral stent placement, left ureteral stent removal. ANESTHESIA: General. COMPLICATIONS: None. ESTIMATED BLOOD LOSS: None. SPECIMEN: Right stone fragments. DESCRIPTION OF PROCEDURE: After informed consent, the patient was taken to the operating room, transferred to the table on her own power. Anesthesia was established. A time-out was performed showing the correct patient, site, and procedure. Preoperative antibiotics were administered. She was prepped and draped in the lithotomy position. The rigid cystoscope was advanced through the urethra into the bladder. The left ureteral stent was grasped and brought out through the urethral meatus. The scope was then reinserted and the right stent was brought out through the urethral meatus. A wire was passed through this into the right collecting system and the stent removed completely. An access sheath was placed over the wire into the right proximal ureter under fluoroscopic guidance and a retrograde pyelogram performed through this showing good filling of the right kidney with no large filling defects or hydronephrosis. The flexible ureteroscope was then passed through the right access sheath into the right renal pelvis, where there were multiple stone fragments noted. Several of these were too large to remove with the basket and were treated with a 273-micron laser fiber. I then spent a significant amount of time using the basket to retrieve all accessible clinically significant stone fragments. There were still several stone fragments in the lower pole in an area that I could not access despite multiple techniques and attempts. None of these appeared clinically significant; however, I do not have a perfect visualization of the lower pole. The remainder of the kidney was then examined noting no further stone fragments. The collecting system was filled with contrast before removing the scope and access sheath, leaving a wire in place. A 6 x 26 double-J ureteral stent was positioned with a curl in the kidney and curl in the bladder under fluoroscopic guidance. The bladder was then drained. She was awoken from anesthesia, transferred back to her hospital bed, and taken to PACU in stable condition, where she will discharge home upon recovery. Job ID: [id number]
--- NOTE | 2020-01-16 12:54 | RAD ---
Retrograde pyelogram: 01/16/2020 COMPARISON: 11/21/2019 HISTORY: Kidney stones FINDINGS: 11 images are provided. The initial image demonstrates a wire and associated catheter tubin g within the right ureter. The second image demonstrates contrast media within a dilated right renal collecting system with blunting of incompletely opacified right calyces. On the second image th ere is irregularity involving the proximal right ureter which could be related to underdistention or true irregularity on the basis of spasm, stricture, or mass. Later imaging demonstrates placement of a right double-J ureteral stent, the proximal curl incompletely formed. IMPRESSION: Retrograde pyelogram as detailed above.
[2020-01-16] MEDS ORDERED: PROPOFOL 200 MG/20 ML VIAL ONE (12:57)
[2020-01-16] MEDS ORDERED: Ondansetron PF 4 MG/2 ML Vial ONE (12:57)
[2020-01-16] MEDS ORDERED: Lidocaine 1% PF 5 ML VIAL ONE (12:57)
[2020-01-16] MEDS ORDERED: Ketorolac Tromethamine 30 MG/ML VIAL ONE (12:57)
[2020-01-16] MEDS ORDERED: EPHEDRINE 25 MG/5 ML SYRINGE ONE (12:57)
[2020-01-16] MEDS ORDERED: PHENYLEPHRINE-NS 100 MCG/ML 10 ML SYRINGE ONE (12:57)
[2020-01-16] MEDS ORDERED: Rocuronium Bromide 10 MG/ML (10ML VIAL) ONE (12:57)
== END 2020-01-16 13:19 | disposition home or self-care (01) ==
LOC: CANSCHSDC → SDC 07:44
PROVIDERS: ATTEND Urology
PROC: 0TC38ZZ Extirpation of Matter from Right Kidney Pelvis, Via Natural or Artificial Opening Endoscopic (ICD-10-PCS; principal; 2020-01-16)
PROC: 0T768DZ Dilation of Right Ureter with Intraluminal Device, Via Natural or Artificial Opening Endoscopic (ICD-10-PCS; 2020-01-16)
DX: N20.0 Calculus of kidney (principal); Z79.84 Long term (current) use of oral hypoglycemic drugs; Z79.899 Other long term (current) drug therapy; Z88.2 Allergy status to sulfonamides
CPT/HCPCS: 74420; 82365; 88300; J1885; J1956; J2405; J2550; J2704; J3010